=== PATIENT | female | born 1970 | race African-American/Black ===

== ENCOUNTER → 2017-06-01 | Outpatient (CLI) | payer OTHER ==
[~2017-06-01] MED LIST: AMOXICILLIN 50500 M1 PO; FLAGYL500 MG PO; HYDROCODON-ACE1 EACH PO; IBUPROFEN 800800 M1 PO; KEFLEX500 MG PO; LORTAB 5 MG/5001 TA1 PO; NAPROXEN375 MG PO
== END ==
LOC: M.RAD 14:02
DX: Z12.31 Encounter for screening mammogram for malignant neoplasm of breast (principal)